=== PATIENT | female | born 2000 | race Caucasian/White ===

== ENCOUNTER 2021-08-28 11:10 | Emergency (ER) | payer OTHER, SELFPAY ==
[2021-08-28 11:16] VITALS: BP 143/80; PULSE 111; RESP 20; TEMP 37.1; O2SAT 97; BMI 30.7
[2021-08-28 11:30] LABS: Basophils % 0.2 % (0.1-2.0); Eosinophils # 0.1 K/mm3 (0.0-0.4); Eosinophils % 1.4 % (0.1-12.0); Hematocrit 45.4 % (37.0-47.0); Hemoglobin 14.6 g/dL (12.2-16.2); Lymphocytes # 0.4 K/mm3 (0.7-4.5); Lymphocytes % 3.7 % (10-50); Mean Corpuscular HGB Conc 32.3 g/dL (31.8-35.4); Mean Corpuscular Hemoglobin 27.9 pg (27.0-31.2); Mean Corpuscular Volume 86.6 fl (81-99); Mean Platelet Volume 6.8 fl (7.4-10.4); Monocytes # 0.2 K/mm3 (0.1-1.0); Monocytes % 2.3 % (1.7-9.3); Neutrophils # 8.9 K/mm3 (1.8-7.8); Neutrophils % 92.3 % (37.0-80.0); Platelet Count 276 K/mm3 (142-424); Red Blood Count 5.24 M/mm3 (4.20-5.40); Red Cell Distribution Width 13.4 % (11.5-17.5); White Blood Count 9.7 K/mm3 (4.5-13.0)
[2021-08-28 11:31] LABS: Chloride 103 mmol/L (98-107); Potassium 4.2 mmoL/L (3.5-5.1); Sodium 134 mmol/L (136-145)
[2021-08-28 11:33] LABS: Blood Urea Nitrogen 12 mg/dl (7-17); Creatinine Clearance Estimated 170 mL/min (50-200); Estimated Glomerular Filt Rate 107 ml/min (>60); GFR (African American) 129 ML/MIN (>60)
[2021-08-28 11:34] LABS: Alanine Aminotransferase 19 U/L (12-78); Albumin Level 4.3 g/dl (3.5-5.0); Albumin/Globulin Ratio 1.6 (1.1-1.8); Alkaline Phosphatase 69 U/L (38-126); Anion Gap 11.2 mEq/L (5-15); Aspartate Amino Transferase 32 U/L (14-36); Calcium 8.4 mg/dl (8.4-10.2); Carbon Dioxide 24 mmol/L (22.0-30.0); Globulin 2.7 g/dL (1.3-3.2); Glucose 110 mg/dl (74-100)
--- NOTE | 2021-08-28 11:34 | HMH.EDNVD ---
ED Disposition Clinical Impression: Gastroenteritis Disposition: Home, Self-Care Condition on Discharge: Good Instructions: DI for Viral Gastroenteritis -- Adult Prescriptions: Promethazine HCl [Phenergan 25mg tab] 25 mg PO BID #12 tab Transmission Status: Pending to [facility]/pharmacy #[id number] Ondansetron [Zofran 4mg ODT] 4 mg PO BIDP PRN #10 tab PRN Reason: Nausea Transmission Status: Pending to [facility]/pharmacy #[id number] - Critical Care Critical Care Time: No Attestation: On , the high probability of a clinically significant, sudden or life threatening deterioration of the following system(s) required my full and direct attention, intervention and personal management. The time I documented below is in addition to time spent performing reported procedures but includes the following listed in this critical care notation. Medical Decision Making - Medical Records Medical records reviewed: Yes: I reviewed the patient's medical records. - Daniel Inquiry Pt receiving controlled substance: No Vital Signs: 08/28/21 11:16 Temperature 98.7 F Temperature Source Oral Pulse Rate [Right Radial] 111 H Respiratory Rate 20 Blood Pressure [Right Arm] 143/80 H Blood Pressure Mean [Right Arm] 101 Blood Pressure Source [Right Arm] Automatic Cuff Blood Pressure Position [Right Arm] Sitting 02 Sat by Pulse Oximetry 97 Oxygen Delivery Method Room Air - Lab Data Lab Results 08/28/21 11:17: WBC 9.7, RBC 5.24, Hgb 14.6, Hct 45.4, MCV 86.6, MCH 27.9, MCHC 32.3, RDW 13.4, Plt Count 276, MPV 6.8 L, Neut % (Auto) 92.3 H, Lymph % (Auto) 3.7 L, Spink % (Auto) 2.3, Eos % (Auto) 1.4, Baso % (Auto) 0.2, Neut # (Auto) 8.9 H, Lymph # (Auto) 0.4 L, Spink # (Auto) 0.2, Eos # (Auto) 0.1, Baso # (Auto) 0.0, Total Counted 100, Neutrophils % (Manual) 95 H, Lymphocytes % (Manual) 4 L, Monocytes % (Manual) 1 L, Platelet Estimate Normal, Hypochromasia 1+, Microcytosis 1+ 08/28/21 11:17: Sodium 134 L, Potassium 4.2, Chloride 103, Carbon Dioxide 24, Anion Gap 11.2, BUN 12, Creatinine 0.70, Estimated Creat Clear 170, Estimated GFR 107, Est GFR ( Amer) 129, Glucose 110 H, Calcium 8.4, Total Bilirubin 1.0, AST 32, ALT 19, Alkaline Phosphatase 69, Total Protein 7.0, Albumin 4.3, Globulin 2.7, Albumin/Globulin Ratio 1.6 08/28/21 11:17: Serum HCG, Qual Negative 08/28/21 11:17: Lipase 33 Result diagrams: 08/28/21 11:17 08/28/21 11:17 Orders (Tests/Meds): ED MEDICATIONS Generic Name Dose Route Start Last Admin Trade Name Freq PRN Reason Stop Dose Admin Sodium Chloride 10 ml 08/28/21 11:22 Sodium Chloride 0.9% 10ml Flush Syringe IV 09/27/21 11:21 NEEDED PRN Maintain IV Site Discontinued Medications Generic Name Dose Route Start Last Admin Trade Name Freq PRN Reason Stop Dose Admin Sodium Chloride 1,000 mls @ 999 mls/hr 08/28/21 11:22 08/28/21 11:26 Sod Chlor 0.9% 1000ml Bag IV 08/28/21 12:22 999 mls/hr .Q1H1M ONE Administration Ondansetron HCl 4 mg 08/28/21 11:22 08/28/21 11:26 Ondansetron 4mg/2ml Vial IV 08/28/21 11:23 4 mg ONCE ONE Administration Promethazine HCl 25 mg 08/28/21 11:25 Promethazine Hcl 25mg/Ml 1ml Vial IV 08/28/21 11:26 ONCE ONE Sodium Chloride 25 ml 08/28/21 11:25 Sodium Chloride 0.9% 25ml Bag IV 08/28/21 11:26 ONCE ONE - Reevaluation(s) Time: 12:59 Reevaluation #1: On reevaluation, patient is feeling better. Vomiting is improved. Repeat abdominal exam is benign. Patient needs follow-up with PCP in 48 hours. Given strict return precautions. Verbalized understanding. Currently tolerating oral intake. Medical Decision Narrative: 20-year-old female presented to the emergency department with some nausea vomiting and diarrhea. Findings are consistent with gastroenteritis. There is no evidence of acute abdomen. Patient afebrile. Work-up initiated. Nausea/Vomiting/Diarrhea HPI - General Chief complaint: Nausea/Vomiting/Diarrhea Stated co
[2021-08-28 11:35] LABS: MANUAL DIFFERENTIAL MANUAL DIFFERENTIAL (MANUAL DIFF)
[2021-08-28 11:36] LABS: Lipase 33 U/L (23-300)
[2021-08-28 11:55] LABS: HCG Qualitative, Serum Negative (Negative)
[2021-08-28 12:03] LABS: Lymphocytes % 4 % (10-50); Monocytes % 1 % (2-9); Neutrophils % 95 % (42-76); Total Cells Counted 100
[2021-08-28 12:04] LABS: Hypochromasia 1+; Microcytosis 1+; Platelet Estimate Normal
--- NOTE | 2021-08-28 12:09 | PC.NURSE ---
pt is resting in bed. nothing needed at this time. Call light within reach.
--- NOTE | 2021-08-28 12:45 | PC.NURSE ---
pt had call light on; I answered the call light and patient stated she had to go to bathroom. I assisted patient to the bathroom, but she was able to walk on her own without any assistance. After using bathroom, patient back to room without assistance needed.
--- NOTE | 2021-08-28 12:59 | PC.NURSE ---
pt had no more vomiting after dose of zofran , phenergan was not given
[2021-08-28 13:10] VITALS: BP 140/76; PULSE 90; RESP 20; TEMP 36.7; O2SAT 99
== END 2021-08-28 13:10 | disposition home or self-care (01) ==
PROVIDERS: Emergency Provider Emergency Medicine; PCP Pediatrics
DX: K52.9 Noninfective gastroenteritis and colitis, unspecified (principal)
CPT/HCPCS: 80053; 83690; 84703; 85007; 85025; 96365; 96375; 99282; 99284; J2405